=== PATIENT | female | born 1975 | race American Indian/Alaskan Native ===

== ENCOUNTER 2017-12-22 12:56 | Emergency (ER) | payer OTHER ==
[2017-12-22] MEDS ORDERED: ZOFRAN IV ONE (13:23)
[2017-12-22] MEDS ORDERED: NACL 0.9% 1000 ML 1,000 ML IV ONE (13:23)
[2017-12-22] MEDS ORDERED: SUBLIMAZE IV ONE (13:23)
[2017-12-22] MEDS ORDERED: DIPRIVAN 10 MG/ML IV ONE (14:11)
--- NOTE | 2017-12-22 15:17 | XRay Report ---
LEFT SHOULDER, 2 views: History: Left shoulder injury. An anterior, inferior dislocation of the left shoulder is identified. No evidence for fracture, ligamentous injury or bone lesion. No significant degenerative changes are detected. IMPRESSION: Left shoulder dislocation.
--- NOTE | 2017-12-22 15:20 | Emergency Department Report ---
HPI - General Chief Complaint: Extremity Injury, Upper Time Seen by Provider: 12/22/17 13:23 - HPI HPI: The patient is a 42-year-old female who presents for evaluation of left shoulder pain. The patient has a history of left shoulder dislocations. The patient reports injuring her left shoulder while horseplaying with her daughter a possible one hour prior to arrival. Since the injury she has a space constant left-sided pain, 10/10 in severity, throbbing in quality, exacerbated with attempting movement of the left shoulder She denies trauma or injury elsewhere. She also denies, injury to the head, headache, neck pain, chest pain , dyspnea, back pain, or paresthesias or motor deficit in the left arm distal to the shoulder. ED Past Medical Hx - Past Medical History Previous Medical History?: No Additional medical history: left shoulder dislocation - Surgical History Additional Surgical History: rt knee surgery - Social History Smoking Status: Current Every Day Smoker Substance Use Type: None - Medications Home Medications: Home Medications Medication Instructions Recorded Confirmed Last Taken Type Ketorolac [Toradol] 10 mg PO Q6H PRN #20 tablet 10/14/16 Unknown Rx oxyCODONE [Roxicodone] 5 mg PO Q6HR PRN #15 tablet 10/14/16 Unknown Rx Acetaminophen/Codeine [Tylenol #3] 1 tab PO Q6H PRN #10 tab 12/22/17 Unknown Rx Ibuprofen [Motrin] 800 mg PO Q8HR PRN #15 tablet 12/22/17 Unknown Rx ED Review of Systems ROS: Stated complaint: LEFT ARM PAIN Other details as noted in HPI Constitutional: denies: fever ENT: denies: throat or neck pain Respiratory: denies: cough, shortness of breath Cardiovascular: denies: chest pain Endocrine: denies unexplained weight loss or gain Gastrointestinal: denies: abdominal pain, nausea Genitourinary: denies: dysuria Musculoskeletal: reprots left shoulder pain denies: leg swelling Skin: denies: rash Neurological: denies: headache Hematological/Lymphatic: denies: easy bleeding or easy bruising Psych: denies sadness or hopelessness Physical Exam - Physical Exam Vital Signs: Vital Signs 12/22/17 12/22/17 12/22/17 13:05 14:07 14:41 Temperature 97.2 F L Temperature [ 97 F L Pre-Procedure] Pulse Rate 100 H 74 Pulse Rate [ Intra-Procedure ] Pulse Rate [Pre 89 -Procedure] Respiratory 20 16 Rate Respiratory Rate [Intra- Procedure] Respiratory 16 Rate [Pre- Procedure] Blood Pressure 129/75 Blood Pressure [Intra- Procedure] Blood Pressure 120/71 [Left] Blood Pressure 120/71 [Pre-Procedure] O2 Sat by Pulse 100 96 Oximetry O2 Sat by Pulse 99 Oximetry [Pre- Procedure] 12/22/17 15:00 Temperature Temperature [ Pre-Procedure] Pulse Rate Pulse Rate [ 102 H Intra-Procedure ] Pulse Rate [Pre -Procedure] Respiratory Rate Respiratory 16 Rate [Intra- Procedure] Respiratory Rate [Pre- Procedure] Blood Pressure Blood Pressure 125/104 [Intra- Procedure] Blood Pressure [Left] Blood Pressure [Pre-Procedure] O2 Sat by Pulse Oximetry O2 Sat by Pulse Oximetry [Pre- Procedure] Physical Exam: General: well-nourished, well-developed, no acute distress Head: Normocephalic, atraumatic Eyes: normal sclera ENT: Mucous membranes are pink and moist Neck: trachea midline, neck supple, No neck stiffness, no cervical adenopathy Respiratory: Breath sounds equal bilaterally, no wheezing, rales, or rhonchi Cardio: S1 and S2 present, no murmurs, rubs, gallops, capillary refill is brisk Abdomen: Normoactive bowel sounds, soft abdomen, no rigidity, no guarding or rebound tenderness Musc: Obvious deformity presents to the left shoulder, anterior left shoulder joint tenderness present, distal sensation, motor function and pulses in the left arm and tach Skin: No rash Neuro: no facial drooping, normal speech Psych: Normal affect ED Course Vital Signs 12/22/17 12/22/17 12/22/17 13:05 14:07 14:41 Temperature 97.2 F L Temperature [ 97 F L Pre-Procedure] Pulse Rate 100 H 74 Pulse Rate [ Intra-Procedure ] Pulse Rate [Pre 89 -Procedure] Respiratory 20 16 Rate Respiratory Rate [Intra- Procedure] Respiratory 16 Rate [Pre- Procedure] Blood Pressure 129/75 Blood Pressure [Intra- Procedure] Blood Pressure 120/71 [Left] Blood Pressure 120/71 [Pre-Procedure] O2 Sat by Pulse 100 96 Oximetry O2 Sat by Pulse 99 Oximetry [Pre- Procedure] 12/22/17 15:00 Temperature Temperature [ Pre-Procedure] Pulse Rate Pulse Rate [ 102 H Intra-Procedure ] Pulse Rate [Pre -Procedure] Respiratory Rate Respiratory 16 Rate [Intra- Procedure] Respiratory Rate [Pre- Procedure] Blood Pressure Blood Pressure 125/104 [Intra- Procedure] Blood Pressure [Left] Blood Pressure [Pre-Procedure] O2 Sat by Pulse Oximetry O2 Sat by Pulse Oximetry [Pre- Procedure] - Moderate Sedation Indications: fracture/dislocation redu ASA Class: I Mallampati Airway Score: 1 Time of Last PO Intake: 12:00 Preparation: emergency manager applied, pulse oximeter, capnometry used, supplemental O2 applied, suction/airway equipment at bedside, IV secured IV Propofol Dose (mgs): 100 Complications: none Patient Tolerated Procedure: well, no complications - Orthopedic Joint Reduction Joint #1 Consent Obtained: verbal consent, written consent Time Out Performed: Yes (time out/start time 1504; end time 1515 ) Side: left Joint Reduction Location: shoulder Analgesia: moderate sedation Shoulder Technique Used (if applicable): traction/counter-traction Post-Reduction Neuro Exam: intact Post-Reduction Vascular Exam: intact Post Reduction X-Ray Obtained: Yes Post Reduction X-Ray Results: reduced Splint Applied: No (shoulder immobilizer placed) Patient Tolerated Procedure: well, no complications ED Medical Decision Making - Medical Decision Making The patient was seen and examined by myself. The patient is placed on a emergency manager and continuous pulse ox. On initial evaluation, the patient was found to be in no distress. Evaluation orders were placed. The patient is given IV pain medicine. X-ray of the left shoulder reveals a anteriorly dislocated shoulder. The patient is consented for conscious sedation and shoulder reduction. She is explained that benefits and risks of conscious sedation including loss of airway and . She provided verbal and written consent. Conscious sedation and shoulder reduction was performed with propofol. A repeat x-ray was obtained and revealed appropriate reduction of the left shoulder. The patient was reevaluated and reported that their symptoms were markedly improved. The patient is stable for discharge with outpatient follow-up. The patient is given follow-up and return instructions. The patient expressed understanding and agreed with the plan. The patient is discharged in stable condition. Critical care attestation.: If time is entered above; I have spent that time in minutes in the direct care of this critically ill patient, excluding procedure time. ED Disposition Clinical Impression: Acute pain of left shoulder Anterior dislocation of left shoulder Qualifiers: Encounter type: initial encounter Qualified Code(s): S43.015A - Anterior dislocation of left humerus, initial encounter Disposition: TO HOME OR SELFCARE Is pt being admited?: No Does the pt Need Aspirin: No Condition: Stable Instructions: Shoulder Dislocation (ED) Prescriptions: Acetaminophen/Codeine [Tylenol #3] 1 tab PO Q6H PRN #10 tab PRN Reason: Pain Ibuprofen [Motrin] 800 mg PO Q8HR PRN #15 tablet PRN Reason: Pain Referrals: PRIMARY CAREMD [Primary Care Provider] - 3-5 Days GABI SHAIKH MD [Staff Physician] - 3-5 Days Time of Disposition: 15:18
[2017-12-22 16:29] VITALS: BP 134/81
--- NOTE | 2017-12-22 16:55 | XRay Report ---
FINAL REPORT PROCEDURE: XR SHOULDER 2+V LT TECHNIQUE: LEFT shoulder radiographs including AP views in internal and external rotation and abduction. CPT 43484 HISTORY: Left shoulder injury alignment COMPARISON: Prior left shoulder series 10/14/2016 FINDINGS: The patient is in a steep reverse apical lordotic position. There is irregularity of the distal end of the acromion. There is a irregular calcification along the distal end of the acromion which may represent separate ossification center. Acute fracture is felt to be less likely. This could be related to old trauma. Correlation with physical exam recommended. There is no dislocation of the glenohumeral joint space. The AC joint appears well maintained. IMPRESSION: Irregularity distal end of the acromion as described may be related to old trauma or represent a separate ossification center. Fracture is felt to be less likely. Correlation with physical exam recommended. There is no evidence of dislocation. No other abnormality is seen.
== END 2017-12-22 16:43 | disposition home or self-care (01) ==
LOC: ED 12:56
DX: S43.015A Anterior dislocation of left humerus, initial encounter (principal); F17.200 Nicotine dependence, unspecified, uncomplicated; X58.XXXA Exposure to other specified factors, initial encounter; Y93.89 Activity, other specified; Y92.89 Other specified places as the place of occurrence of the external cause; Y99.8 Other external cause status
CPT/HCPCS: 23650; 73030; 96361; 96374; 96375; 99284; J2405; J2704; J3010; J7030